=== PATIENT | female | born 1970 | race Caucasian/White ===

== ENCOUNTER → 2017-01-08 | Outpatient (CLI) | payer OTHER ==
--- NOTE | 2017-01-08 11:15 | WOMENS IMAGING REPORT ---
EXAM DESCRIPTION: BILAT SCREENING MAMMO W/CAD COMPLETED DATE/TIME: 01/08/2017 10:59 am REASON FOR STUDY: SCREENING MAMMO Z12.31 ENCNTR SCREEN MAMMOGRAM FOR MALIGNANT NEOPLASM OF SAMANTHA COMPARISON: None. TECHNIQUE: Standard craniocaudal and mediolateral oblique views of each breast recorded using digita l acquisition. LIMITATIONS: None. FINDINGS: No masses, calcifications or architectural distortion. No areas of suspicion. Read with the assistance of CAD. .[facility] - R2 Cenova Version 1.3 .[facility] Imaging - R2 Cenova Version 1.3 .[facility] - R2 Cenova Version 2.4 .[facility] [place] Cenova Version 2.4 [facility] - R2 Windrower Operator Version 9.2 IMPRESSION: NORMAL MAMMOGRAM. BIRADS 1. BREAST DENSITY: b. There are scattered areas of fibroglandular density. BIRAD: 1 NEGATIVE RECOMMENDATION: ROUTINE SCREENING COMMENT: The patient has been notified of the results by letter per SA requirements. Additional no tification policies are in place for contacting patient with suspicious or incomplete findings. Quality ID #[id number]: The [employer] recommends an annual screening mammogram for women aged 40 years or over. This facility utilizes a reminder system to ensure that all patients receive reminder letters, and/or direct phone calls for appointments. This includes reminders for routine scr eening mammograms, diagnostic mammograms, or other Breast Imaging Interventions when appropriate. Th is patient will be placed in the appropriate reminder system. The [employer] ([employer]) has developed recommendations for screening MRI of the breast s in certain patient populations, to be used in conjunction with mammography. Breast MRI surveillanc e may be appropriate for women with more than 20% lifetime risk of developing breast cancer as deter mined by genetic testing, significant family history of the disease, or history of mantle radiation f or Hodgkins Disease. [employer] Practice Guidelines 2008. TECHNICAL DOCUMENTATION: FINDING NUMBER: (1) ASSESSMENT: (1) JOB ID: [id number] [employer]- All Rights Reserved
== END ==
LOC: WI 10:39
PROVIDERS: ATTEND Nurse Practitioner
DX: Z12.31 Encounter for screening mammogram for malignant neoplasm of breast (principal)
CPT/HCPCS: 77067; G0202

== ENCOUNTER 2018-02-07 01:39 | Emergency (ER) | payer OTHER ==
[2018-02-07] MEDS ORDERED: LIDOCAINE 2% VISCOUS SOLN 20 ML UDCUP PO ONE (02:02)
--- NOTE | 2018-02-07 02:36 | ER Document Report ---
ED General - General Chief Complaint: Foreign Body in Ear Stated Complaint: POSSIBLE FOREIGN OBJECT IN EAR Time Seen by Provider: 02/07/18 01:55 TRAVEL OUTSIDE OF THE [place] IN LAST 30 DAYS: No - HPI Patient complains to provider of: A bug in my ear Notes: 47-year-old female with Mnire's disease presents to the emergency department with a foreign object in her left ear. She says that there are still a lot of holes in her house from her came Shari and she still gets a lot of bugs. She was sleeping when she was suddenly awoken by the sensation of something moving in her ear. - Related Data Allergies/Adverse Reactions: No Known Allergies Allergy (Unverified 02/07/18 01:43) Past Medical History - Social History Smoking Status: Unknown if Ever Smoked Family History: Reviewed & Not Pertinent Patient has suicidal ideation: No Patient has homicidal ideation: No Renal/ Medical History: Denies: Hx Peritoneal Dialysis Review of Systems - Review of Systems EENT: Ear pain - Pain and discomfort secondary to foreign body moving in her ear Physical Exam - Vital signs Vitals: Temp Pulse Resp BP Pulse Ox 98.0 F 113 H 20 152/90 H 98 02/07/18 01:45 02/07/18 01:45 02/07/18 01:45 02/07/18 01:45 02/07/18 01:45 - HEENT Head: Normocephalic Eyes: Normal Extraocular movements intact: Yes External canal: Foreign body - Brown appearing bug in the external auditory canal. Course - Re-evaluation Re-evalutation: 02/07/18 02:20 Approximately 3 mL's of lidocaine 2% viscous injected into auditory canal. Will wait approximately 10 minutes to paralyze the bug and will attempt to retrieve it either with forceps or with saline flush 02/07/18 03:43 Attempted multiple flushes after viscous lidocaine to the ear. Only a small piece of the foreign object was removed. There were multiple broken fragments of the bug after multiple flushes. Approximately 750 mL's of warm water and hydrogen peroxide was used with a 20-gauge catheter and a [address] Gonzalez who came and inspected the ear and also attempted to flush. Trauma and bleeding of the ear canal noted on the last flush. At this point I am going to refer her to ENT this morning to see Dr. Thorne. Plan to discharge with ofloxacin eardrops. 02/07/18 03:46 - Vital Signs Vital signs: Temp Pulse Resp BP Pulse Ox 98.0 F 113 H 20 152/90 H 98 02/07/18 01:45 02/07/18 01:45 02/07/18 01:45 02/07/18 01:45 02/07/18 01:45 Discharge - Discharge Clinical Impression: Foreign body of ear, left Qualifiers: Encounter type: initial encounter Qualified Code(s): T16.2XXA - Foreign body in left ear, initial encounter Condition: Stable Disposition: HOME, SELF-CARE Additional Instructions: He was seen in the emergency department tonight for a foreign body in your ear that appeared to be a bug. Multiple attempts were made to flush the ear and although it appears to have broken it up it still remains. At this point the best course of action is to refer you to Dr. Thorne this morning at ENT. We have put prescribed you with eardrops that he should place in your ear. Please call his office at 8:00 in the morning for follow-up. Referrals: ODILON TEMPLE FNP [Primary Care Provider] - Follow up as needed MY THORNE DO [ASSOCIATE] - Follow up as needed
[2018-02-07] MEDS ORDERED: ACETAMINOPHEN 325 MG TABLET PO ONE (04:03)
[2018-02-07] MEDS ORDERED: IBUPROFEN 600 MG TABLET PO ONE (04:03)
[2018-02-07] MEDS ORDERED: HYDROCODONE/ACETAMINOPHEN 5-325 MG (6 TAB/ER DISP) PO PRN ×2 (04:12→04:24)
[2018-02-07 04:38] VITALS: BP 149/85
== END 2018-02-07 04:36 | disposition home or self-care (01) ==
LOC: ER 01:39
DX: T16.2XXA Foreign body in left ear, initial encounter (principal); X58.XXXA Exposure to other specified factors, initial encounter
CPT/HCPCS: 99282; J3490